=== PATIENT | female | born 1950 | race Caucasian/White ===

== ENCOUNTER 2016-09-30 16:27 | Emergency (ER) | payer OTHER, MEDICAID ==
[~2016-09-30] VITALS: Ht 165.1 cm; Wt 95.3 kg
--- NOTE | 2016-09-30 17:39 | PHYS DOC ---
Past Medical History Past Medical History: Anxiety, GERD, Hypertension Additional Past Medical Histor: DDD, panic attacks, chronic back pain Past Surgical History: No Surgical History Alcohol Use: None Drug Use: None Adult General Chief Complaint Chief Complaint: NAUSEA/VOMITING/DIARRHA HPI HPI Patient is a 66 year old female with history of hypertension anxiety acid reflex who presents today with nausea and vomiting intermittently that began approximately 6 days ago. Patient is also complaining of a generalized abdominal pain and coughing. Patient denies any diarrhea or hematemesis. She states she has history of acid reflex and is not sure if her symptoms are related to acid reflex. Patient is also complaining of dysuria that began 6 days ago. Patient denies any hematuria. Denies any fever. Review of Systems Review of Systems Constitutional: Denies fever or chills [] Eyes: Denies change in visual acuity, redness, or eye pain [] HENT: Denies nasal congestion or sore throat [] Respiratory: Denies cough or shortness of breath [] Cardiovascular: No additional information not addressed in HPI [] GI: abdominal pain, nausea, vomiting, : dysuria Musculoskeletal: Denies back pain or joint pain [] Integument: Denies rash or skin lesions [] Neurologic: Denies headache, focal weakness or sensory changes [] Endocrine: Denies polyuria or polydipsia [] Current Medications Current Medications Current Medications Medications (Trade) Dose Ordered Sig/Clarence Start Time Stop Time Status Last Admin Dose Admin Famotidine (Pepcid) 20 mg 1X ONCE 09/30/16 17:45 09/30/16 17:46 DC 09/30/16 18:01 20 MG Info (Do NOT chart on this entry -- for MONITORING) 1 each PRN DAILY PRN 09/30/16 18:30 10/02/16 18:29 Iohexol (Omnipaque 300 Mg/ml) 75 ml 1X ONCE 09/30/16 18:30 09/30/16 18:31 DC 09/30/16 18:36 75 ML Levofloxacin (Levaquin) 500 mg 1X ONCE 09/30/16 19:30 09/30/16 19:31 DC 09/30/16 19:38 500 MG Potassium Chloride (Klor-Con) 40 meq 1X ONCE 09/30/16 19:00 09/30/16 19:01 DC 09/30/16 19:39 40 MEQ Prochlorperazine Edisylate (Compazine) 10 mg 1X ONCE 09/30/16 17:45 09/30/16 17:46 DC 09/30/16 18:01 10 MG Sodium Chloride 1,000 ml @ 1,000 mls/hr 1X ONCE 09/30/16 17:45 09/30/16 18:44 DC 09/30/16 18:01 1,000 MLS/HR Allergies Allergies Allergies Coded Allergies Type Severity Reaction Last Updated Verified codeine Allergy Intermediate 09/05/15 Yes Physical Exam Physical Exam Constitutional: Well developed, well nourished, no acute distress, non-toxic appearance. [] HENT: Normocephalic, atraumatic, bilateral external ears normal, oropharynx moist, no oral exudates, nose normal. [] Eyes: PERRLA, EOMI, conjunctiva normal, no discharge. [] Neck: Normal range of motion, no tenderness, supple, no stridor. [] Cardiovascular:Heart rate regular rhythm, no murmur [] Lungs & Thorax: Bilateral breath sounds clear to auscultation [] Abdomen: Bowel sounds normal, soft, no tenderness, no masses, no pulsatile masses. [] Skin: Warm, dry, no erythema, no rash. [] Back: No tenderness, no CVA tenderness. [] Extremities: No tenderness, no cyanosis, no clubbing, ROM intact, no edema. [] Neurologic: Alert and oriented X 3, normal motor function, normal sensory function, no focal deficits noted. [] Psychologic: Affect normal, judgement normal, mood normal. [] Current Patient Data Vital Signs Vital Signs Date Time Temp Pulse Resp B/P (MAP) Pulse Ox O2 Delivery O2 Flow Rate FiO2 09/30/16 17:21 98.3 76 20 136/69 (91) 97 Room Air 98.3 Lab Values Laboratory Tests Test 09/30/16 16:40 09/30/16 17:50 Urine Color Stephanie Urine Clarity Clear Urine pH 6.0 Urine Specific [place] 1.025 Urine Protein 30 mg/dL (NEG-TRACE) Urine Glucose (UA) Negative mg/dL (NEG) Urine Ketones (Stick) Trace mg/dL (NEG) Urine Blood Moderate (NEG) Urine Nitrite Positive (NEG) Urine Bilirubin Small (NEG) Urine Urobilinogen Dipstick 1.0 mg/dL (0.2 mg/dL) Urine Leukocyte Esterase Small (NEG) Urine RBC 0 /HPF (0-2) Urine WBC 5-10 /HPF (0-4) Urine Squamous Epithelial Cells Occ /LPF Urine Bacteria Many /HPF (0-FEW) Urine Hyaline Casts Occasional /HPF Urine Mucus Slight /LPF Urine Opiates Screen Neg (NEG) Urine Methadone Screen Neg (NEG) Urine Barbiturates Neg (NEG) Urine Phencyclidine Screen Neg (NEG) Urine Amphetamine/Methamphetamine Neg (NEG) Urine Benzodiazepines Screen Pos (NEG) Urine Cocaine Screen Neg (NEG) Urine Cannabinoids Screen Pos (NEG) Urine Ethyl Alcohol Neg (NEG) White Blood Count 11.4 x10^3/uL (4.0-11.0) H Red Blood Count 4.42 x10^6/uL (3.50-5.40) Hemoglobin 13.8 g/dL (12.0-15.5) Hematocrit 40.4 % (36.0-47.0) Mean Corpuscular Volume 91 fL (79-100) Mean Corpuscular Hemoglobin 31 pg (25-35) Mean Corpuscular Hemoglobin Concent 34 g/dL (31-37) Red Cell Distribution Width 13.7 % (11.5-14.5) Platelet Count 268 x10^3/uL (140-400) Neutrophils (%) (Auto) 71 % (31-73) Lymphocytes (%) (Auto) 18 % (24-48) L Monocytes (%) (Auto) 9 % (0-9) Eosinophils (%) (Auto) 1 % (0-3) Basophils (%) (Auto) 1 % (0-3) Neutrophils # (Auto) 8.1 x10^3uL (1.8-7.7) H Lymphocytes # (Auto) 2.1 x10^3/uL (1.0-4.8) Monocytes # (Auto) 1.0 x10^3/uL (0.0-1.1) Eosinophils # (Auto) 0.2 x10^3/uL (0.0-0.7) Basophils # (Auto) 0.1 x10^3/uL (0.0-0.2) Sodium Level 145 mmol/L (136-145) Potassium Level 3.0 mmol/L (3.5-5.1) L Chloride Level 105 mmol/L (98-107) Carbon Dioxide Level 32 mmol/L (21-32) Anion Gap 8 (6-14) Blood Urea Nitrogen 16 mg/dL (7-20) Creatinine 1.2 mg/dL (0.6-1.0) H Estimated GFR (Cockcroft-Gault) 45.1 BUN/Creatinine Ratio 13 (6-20) Glucose Level 118 mg/dL (70-99) H Calcium Level 9.5 mg/dL (8.5-10.1) Total Bilirubin 0.8 mg/dL (0.2-1.0) Aspartate Amino Transferase (AST) 12 U/L (15-37) L Alanine Aminotransferase (ALT) 13 U/L (14-59) L Alkaline Phosphatase 84 U/L (46-116) Total Protein 7.4 g/dL (6.4-8.2) Albumin 3.7 g/dL (3.4-5.0) Albumin/Globulin Ratio 1.0 (1.0-1.7) Lipase 106 U/L (73-393) Ethyl Alcohol Level < 10 mg/dL (0-10) Laboratory Tests 09/30/16 17:50 Laboratory Tests 09/30/16 17:50 EKG EKG [] Radiology/Procedures Radiology/Procedures []PROCEDURE: CT ABD PELV W/ IV CONTRST ONLY CT ABDOMEN/PELVIS Indication: abd pain, nausea and vomiting
omni 300 60ml Technique: Multiple contiguous axial images were obtained through the abdomen and pelvis after administration of intravenous iodinated contrast. Coronal and sagittal reformations were created. PQRS STATEMENT One or more of the following in the visualized dose reduction techniques were utilized for this study: 1. Automatic exposure control, 2. Adjustment of the mA and/or kV according to patient size, 3. Use of iterative reconstruction technique Comparison: 03/22/2009 Findings: Heart size is normal. No consolidating infiltrates are noted in the right lower lobe. The liver is normal in size with no focal lesion identified. The gallbladder is surgically absent. The pancreas, spleen, and adrenal glands are within normal limits. There is a 7 mm low-attenuation lesion in the superior pole cortex of the right kidney which is unchanged and could represent a focal scar, small cortical cyst, or angiomyolipoma. This is unchanged compared to the exam from 2009 and therefore likely benign. The portal vein and SMV are patent. The abdominal aorta is normal in caliber. There is no abdominopelvic ascites or adenopathy. The bowel loops are normal in caliber. The appendix is normal. The urinary bladder is unremarkable. There is degenerative disc and facet disease greatest at L4-L5 where there is at least mild to moderate central spinal stenosis. Impression: Right lower lobe nonconsolidating infiltrate. Correlate for clinical signs and symptoms of pneumonia. No abdominopelvic ascites or inflammatory mass. Normal appendix. Degenerative disc and facet disease greatest at L4-L5. Electronically signed by: Pankaj Byrne MD (09/30/2016 7:22 PM) [facility] DICTATED and SIGNED BY: PANKAJ BYRNE MD Course & Med Decision Making Course & Med Decision Making Pertinent Labs and Imaging studies reviewed. (See chart for details) This is a 66-year-old female patient with history of acid reflux who presents today with nausea and vomiting intermittently for the last 6 days. Patient is also complaining of dysuria and coughing. Urine positive for UTI, CBC with a WBC of 11.4, CMP with potassium of 3.0, patient was given oral potassium replacement. CT of the abdomen and pelvic was noted for right lower lobe pneumonia otherwise no acute findings. Patient was given Levaquin in the ED and discharged with the same. She was also discharged with instructions to increase dietary potassium intake. Her nausea and vomiting is controlled in the ED, discharged with Compazine. She is to follow-up with her PCP in 3-5 days. Dragon Disclaimer Dragon Disclaimer This electronic medical record was generated, in whole or in part, using a voice recognition dictation system. Departure Departure Impression: Primary Impression: Right lower lobe pneumonia Additional Impressions: Urinary tract infection Hypokalemia Disposition: 01 HOME, SELF-CARE Condition: STABLE Referrals: HAO LORENZ (PCP) follow up with your doctor in 3-5 days Patient Instructions: Hypokalemia-Brief, Pneumonia, Adult, Urinary Tract Infection Additional Instructions: You were seen for pneumonia, urinary tract infection, nausea and vomiting. Your potassium was also low, increase your dietary potassium intake through foods like bananas, sweet potatoes. Ensure you complete your antibiotics. Come back to the ED if symptoms worsen otherwise follow-up with your doctor in the next 3- 5 days. Scripts Levofloxacin (LEVAQUIN) 500 Mg Tablet 1 TAB PO DAILY, #6 TAB Prov: GODFREY CUMMINGS APRN 09/30/16 Prochlorperazine Maleate (Compazine) 10 Mg Tablet 10 MG PO Q8HRS, #20 TAB Prov: GODFREY CUMMINGS APRN 09/30/16 Problem Qualifiers Primary Impression: Right lower lobe pneumonia Pneumonia type: due to unspecified organism Qualified Codes: J18.1 - Lobar pneumonia, unspecified organism Additional Impressions: Urinary tract infection Urinary tract infection type: site unspecified Hematuria presence: without hematuria Qualified Codes: N39.0 - Urinary tract infection, site not specified GODFREY CUMMINGS APRN Sep 30, 2016 17:39
[2016-09-30] MEDS ORDERED: PROCHLORPERAZINE 10 MG/2 ML VIAL. IV ONE (17:45)
[2016-09-30] MEDS ORDERED: FAMOTIDINE 20 MG/2 ML VIAL IVP ONE (17:45)
[2016-09-30] MEDS ORDERED: IV NORMAL SALINE 1000ML BAG 1,000 ML IV ONE (17:45)
[2016-09-30 17:53] LABS: BILIRUBIN,URINE SMALL (NEG); GLUCOSE,URINE NEGATIVE (NEG); NITRITE,URINE POSITIVE (NEG); PROTEIN,URINE 30 mg/dL (NEG-TRACE)
[2016-09-30 18:01] LABS: BARBITURATES NEG (NEG); BENZODIAZEPINES POS (NEG); CANNABINOIDS POS (NEG); COCAINE NEG (NEG); METHADONE NEG (NEG); OPIATES NEG (NEG); PHENCYCLIDINE NEG (NEG)
[2016-09-30 18:02] LABS: BASO # 0.1 x10^3/uL (0.0-0.2); BASO % 1 % (0-3); EOS % 1 % (0-3); HEMATOCRIT 40.4 % (36.0-47.0); HEMOGLOBIN 13.8 g/dL (12.0-15.5); LYMPH # 2.1 x10^3/uL (1.0-4.8); LYMPH % 18 % (24-48); MEAN CORPUSCULAR HEMOGLOBIN 31 pg (25-35); MEAN CORPUSCULAR HGB CONC 34 g/dL (31-37); MEAN CORPUSCULAR VOLUME 91 fL (79-100); MONO % 9 % (0-9); NEUT % 71 % (31-73); PLATELET COUNT 268 x10^3/uL (140-400); RED BLOOD COUNT 4.42 x10^6/uL (3.50-5.40); RED CELL DISTRIBUTION WIDTH 13.7 % (11.5-14.5); WHITE BLOOD COUNT 11.4 x10^3/uL (4.0-11.0)
[2016-09-30 18:14] LABS: RBC,URINE 0 /HPF (0-2)
[2016-09-30 18:15] LABS: BACTERIA,URINE MANY /HPF (0-FEW); SQUAMOUS EPITHELIAL CELL,UR OCC /LPF
[2016-09-30 18:16] LABS: ALBUMIN 3.7 g/dL (3.4-5.0); CALCIUM 9.5 mg/dL (8.5-10.1); CREATININE 1.2 mg/dL (0.6-1.0); GFR 45.1; TOTAL BILIRUBIN 0.8 mg/dL (0.2-1.0); TOTAL PROTEIN 7.4 g/dL (6.4-8.2)
[2016-09-30] MEDS ORDERED: CONTRAST GIVEN MC PRN (18:30)
[2016-09-30] MEDS ORDERED: IOHEXOL 300 MG/ML 75 ML VIAL IV ONE (18:30)
[2016-09-30] MEDS ORDERED: POTASSIUM CHLORIDE 20 MEQ TABLET.ER. PO ONE (19:00)
--- NOTE | 2016-09-30 19:25 | RAD ---
CT ABDOMEN/PELVIS Indication: abd pain, nausea and vomiting
omni 300 60ml Technique: Multiple contiguous axial images were obtained through the abdomen and pelvis after administration of intravenous iodinated contrast. Coronal and sagittal reformations were created. PQRS STATEMENT One or more of the following in the visualized dose reduction techniques were utilized for this study: 1. Automatic exposure control, 2. Adjustment of the mA and/or kV according to patient size, 3. Use of iterative reconstruction technique Comparison: 03/22/2009 Findings: Heart size is normal. No consolidating infiltrates are noted in the right lower lobe. The liver is normal in size with no focal lesion identified. The gallbladder is surgically absent. The pancreas, spleen, and adrenal glands are within normal limits. There is a 7 mm low-attenuation lesion in the superior pole cortex of the right kidney which is unchanged and could represent a focal scar, small cortical cyst, or angiomyolipoma. This is unchanged compared to the exam from 2008 and therefore likely benign. The portal vein and SMV are patent. The abdominal aorta is normal in caliber. There is no abdominopelvic ascites or adenopathy. The bowel loops are normal in caliber. The appendix is normal. The urinary bladder is unremarkable. There is degenerative disc and facet disease greatest at L4-L5 where there is at least mild to moderate central spinal stenosis. Impression: Right lower lobe nonconsolidating infiltrate. Correlate for clinical signs and symptoms of pneumonia. No abdominopelvic ascites or inflammatory mass. Normal appendix. Degenerative disc and facet disease greatest at L4-L5. Electronically signed by: Pankaj Miguel MD (09/30/2016 7:22 PM) [facility]
[2016-09-30 19:30] VITALS: BP 118/54
[2016-09-30] MEDS ORDERED: LEVO500T59 PO (20:07)
[2016-09-30] MEDS ORDERED: PROC10TA57 PO (20:07)
== END 2016-09-30 20:30 | disposition home or self-care (01) ==
LOC: ER 16:27
DX: J18.1 Lobar pneumonia, unspecified organism (principal); N39.0 Urinary tract infection, site not specified; E87.6 Hypokalemia; K21.9 Gastro-esophageal reflux disease without esophagitis; I10 Essential (primary) hypertension; F41.0 Panic disorder [episodic paroxysmal anxiety]; G89.29 Other chronic pain; Z88.5 Allergy status to narcotic agent
CPT/HCPCS: 36415; 74177; 80053; 80305; 80320; 81001; 83690; 85027; 87086; 96361; 96374; 96375; 99285; J0780; J7030; Q9967; S0028; G0480; G0481

== ENCOUNTER 2018-12-03 14:28 | Emergency (ER) | payer MEDICAID, OTHER ==
[~2018-12-03] VITALS: Ht 165.1 cm; Wt 91.6 kg
[~2018-12-03 14:28] MED LIST: LEVO500T59 PO; PROC10TA57 PO
[2018-12-03 14:40] VITALS: BP 189/95
[2018-12-03] MEDS ORDERED: KETOROLAC 30 MG/ML VIAL. IM STA (14:57)
--- NOTE | 2018-12-03 15:01 | PHYS DOC ---
Past Medical History Past Medical History: Anxiety, GERD, Hypertension Additional Past Medical Histor: DDD, panic attacks, chronic back pain Past Surgical History: No Surgical History Alcohol Use: None Drug Use: None Adult General Chief Complaint Chief Complaint: LOWER EXT PAIN HPI HPI Patient is a 68 year old female that presents with right knee pain has been ongoing for 3 weeks. The patient states that she's had trouble with her knee historically and even was told she needed of surgery on it but she's been scared of surgery. The patient states that over the last 3 weeks however the knee is gotten increasingly worse and has been swelling. Rates her pain as 10 out of 10 in severity and sharp and throbbing. She was able to fully extend her knee and bend. Review of Systems Review of Systems Constitutional: Denies fever or chills [] Eyes: Denies change in visual acuity, redness, or eye pain [] HENT: Denies nasal congestion or sore throat [] Respiratory: Denies cough or shortness of breath [] Cardiovascular: No additional information not addressed in HPI [] GI: Denies abdominal pain, nausea, vomiting, bloody stools or diarrhea [] : Denies dysuria or hematuria [] Musculoskeletal: Reports R knee pain. Integument: Denies rash or skin lesions [] Neurologic: Denies headache, focal weakness or sensory changes [] Endocrine: Denies polyuria or polydipsia [] Complete systems were reviewed and found to be within normal limits, except as documented in this note. Current Medications Current Medications Current Medications Medications (Trade) Dose Ordered Sig/Clarence Start Time Stop Time Status Last Admin Dose Admin Ketorolac Tromethamine (Toradol 30mg Vial) 30 mg 1X STAT 12/03/18 14:57 12/03/18 14:58 DC 12/03/18 15:03 30 MG Allergies Allergies Allergies Coded Allergies Type Severity Reaction Last Updated Verified codeine Allergy Intermediate 09/05/15 Yes Physical Exam Physical Exam Constitutional: Well developed, well nourished, no acute distress, non-toxic appearance. [] HENT: Normocephalic, atraumatic, bilateral external ears normal, oropharynx moist, no oral exudates, nose normal. [] Eyes: PERRLA, EOMI, conjunctiva normal, no discharge. [] Neck: Normal range of motion, no tenderness, supple, no stridor. [] Skin: Warm, dry, no erythema, no rash. [] Back: R knee tenderness, mild edema. Extremities: No tenderness, no cyanosis, no clubbing, ROM intact, no edema. [] Neurologic: Alert and oriented X 3, normal motor function, normal sensory function, no focal deficits noted. [] Psychologic: Affect normal, judgement normal, mood normal. [] Current Patient Data Vital Signs Vital Signs Date Time Temp Pulse Resp B/P (MAP) Pulse Ox O2 Delivery O2 Flow Rate FiO2 12/03/18 14:40 98.2 60 18 189/95 (126) 100 Room Air 98.2 EKG EKG [] Radiology/Procedures Radiology/Procedures [][facility] [address] [place] [address] IMAGING REPORT Signed PATIENT: SAHARA HAYS GACCOUNT: [id number] : 1950 LOCATION: ER AGE: 68 SEX: F EXAM STATUS: REG ER ORD. PHYSICIAN: WILL ANG APRN REASON: pain, swelling PROCEDURE: KNEE RIGHT 3V Three-view right knee study Clinical indications: Right knee pain and swelling. FINDINGS: No acute fracture or dislocation or lytic process is evident. There is mild degenerative joint space narrowing and spurring of the medial tibiofemoral joint compartment. There is mild joint space narrowing and minimal degenerative spurring of the lateral tibial femoral joint compartment. There is mild joint space narrowing and spurring of the patellofemoral joint compartment. Small right knee joint effusion is seen. IMPRESSION: Tricompartmental primary degenerative osteoarthritis of the right knee. Electronically signed by: Camacho Hussein MD (12/03/2018 3:32 PM) [id number] DICTATED and SIGNED BY: CAMACHO HUSSEIN MD DATE: 12/03/18 1539 Course & Med Decision Making Course & Med Decision Making Pertinent Labs and Imaging studies reviewed. (See chart for details) Will get x-ray and give Toradol. X-ray shows osteoarthritis. Will recommend to continue to follow up with primary care (who has her on steroids) and Ortho. Elizabeth Disclaimer Dragon Disclaimer This electronic medical record was generated, in whole or in part, using a voice recognition dictation system. Departure Departure Impression: Primary Impression: Knee pain Disposition: HOME, SELF-CARE Condition: STABLE Referrals: ELLIOT MCGOVERN APRN (PCP) SUZETTE CATHERINE MD Patient Instructions: Osteoarthritis Additional Instructions: Thank you for visiting [facility]. We appreciate you trusting us with your care. If any additional problems come up don't hesitate to return to visit us. Please follow up with your primary care provider so they can plan additional care if needed and know about the problem that you had. If symptoms worsen come back to the Emergency Department. Any concerning symptoms that start such as chest pain, shortness of air, weakness or numbness on one side of the body, running high fevers or any other concerning symptoms return to the ER. Problem Qualifiers Primary Impression: Knee pain Chronicity: acute Laterality: right Qualified Codes: M25.561 - Pain in right knee WILL ANG APRN Dec 03, 2018 15:01
--- NOTE | 2018-12-03 15:35 | RAD ---
Three-view right knee study Clinical indications: Right knee pain and swelling. FINDINGS: No acute fracture or dislocation or lytic process is evident. There is mild degenerative joint space narrowing and spurring of the medial tibiofemoral joint compartment. There is mild joint space narrowing and minimal degenerative spurring of the lateral tibial femoral joint compartment. There is mild joint space narrowing and spurring of the patellofemoral joint compartment. Small right knee joint effusion is seen. IMPRESSION: Tricompartmental primary degenerative osteoarthritis of the right knee. Electronically signed by: Lexa Hussein MD (12/03/2018 3:32 PM) [facility]
== END 2018-12-03 16:06 | disposition home or self-care (01) ==
LOC: ER 14:28
DX: M25.561 Pain in right knee (principal); G89.29 Other chronic pain; I10 Essential (primary) hypertension; K21.9 Gastro-esophageal reflux disease without esophagitis; M17.11 Unilateral primary osteoarthritis, right knee; Z88.5 Allergy status to narcotic agent
CPT/HCPCS: 73562; 96372; 99284; J1885